=== PATIENT | male | born 1950 | race Caucasian/White ===

== ENCOUNTER 2020-10-31 21:18 | Inpatient (IN) | payer MEDICARE, OTHER ==
[~2020-10-31] VITALS: Ht 175.3 cm; Wt 110.2 kg
[2020-10-31 22:01] LABS: HEMOGLOBIN 15.9 gm/dl (14.0-17.5); RED BLOOD COUNT 5.61 M/UL (4.20-5.50); WHITE BLOOD COUNT 12.1 K/UL (4.5-11.0)
[2020-10-31 22:15] LABS: BUN/CREATININE RATIO 19 (0-10)
[2020-11-01 05:08] LABS: BUN/CREATININE RATIO 15 (0-10)
[2020-11-01] MEDS ORDERED: TRELEGY ELLIPT1 EACH INH (09:37)
[2020-11-01] MEDS ORDERED: FUROSEMIDE20 MG PO (09:38)
[2020-11-01] MEDS ORDERED: AMLODIPINE BESYL5 MG PO (09:40)
[2020-11-01] MEDS ORDERED: METOPROLOL SUCC50 MG PO (09:41)
[2020-11-02 02:51] LABS: RED BLOOD COUNT 5.27 M/UL (4.20-5.50); WHITE BLOOD COUNT 10.9 K/UL (4.5-11.0)
[2020-11-02 02:54] LABS: HEMOGLOBIN 13.9 gm/dl (14.0-17.5)
[2020-11-02 03:10] LABS: BUN/CREATININE RATIO 16 (0-10)
[2020-11-03 02:47] LABS: BUN/CREATININE RATIO 18 (0-10)
[2020-11-03 13:22] LABS: BUN/CREATININE RATIO 22 (0-10)
[2020-11-04 08:56] LABS: HEMOGLOBIN 15.8 gm/dl (14.0-17.5); RED BLOOD COUNT 5.62 M/UL (4.20-5.50)
[2020-11-04 09:15] LABS: BUN/CREATININE RATIO 31 (0-10)
[2020-11-05 02:40] LABS: HEMOGLOBIN 16.5 gm/dl (14.0-17.5); RED BLOOD COUNT 5.86 M/UL (4.20-5.50); WHITE BLOOD COUNT 12.8 K/UL (4.5-11.0)
[2020-11-05 03:07] LABS: BUN/CREATININE RATIO 39 (0-10)
[2020-11-06 04:01] LABS: BUN/CREATININE RATIO 40 (0-10)
[2020-11-07 03:27] LABS: RED BLOOD COUNT 6.09 M/UL (4.20-5.50); WHITE BLOOD COUNT 10.3 K/UL (4.5-11.0)
[2020-11-07 03:40] LABS: BUN/CREATININE RATIO 40 (0-10)
[2020-11-08 04:48] LABS: BUN/CREATININE RATIO 44 (0-10)
[2020-11-08] MEDS ORDERED: IPRAT-ALBUT 0.5-3 ML NEB (13:07)
[2020-11-08] MEDS ORDERED: K-DUR TAB 20 M20 MEQ PO (13:07)
[2020-11-08] MEDS ORDERED: ACETAZOLAMIDE250 MG PO (13:07)
[2020-11-08] MEDS ORDERED: ISOSORBIDE MONO30 MG PO (13:07)
[2020-11-08] MEDS ORDERED: FUROSEMIDE40 MG PO (13:07)
[2020-11-08] MEDS ORDERED: NICOTINE PATCH1 EAC1 TD (13:07)
== END 2020-11-08 15:38 | disposition home health service (06) | DRG 291 ==
LOC: ER1 21:18 → CDU 22:32 → PROG CARE 22:32
PROVIDERS: Family Medicine; Internal Medicine; Internal Medicine Infectious Disease; Internal Medicine Pulmonary Disease; Nurse Practitioner Family; ADMIT Family Medicine
PROC: 5A09557 Assistance with Respiratory Ventilation, Greater than 96 Consecutive Hours, Continuous Positive Airway Pressure (ICD-10-PCS; principal; 2020-10-31)
DX: I11.0 Hypertensive heart disease with heart failure (principal); J96.21 Acute and chronic respiratory failure with hypoxia; E66.2 Morbid (severe) obesity with alveolar hypoventilation; J84.9 Interstitial pulmonary disease, unspecified; J44.1 Chronic obstructive pulmonary disease with (acute) exacerbation; I50.33 Acute on chronic diastolic (congestive) heart failure; E87.6 Hypokalemia; I27.20 Pulmonary hypertension, unspecified; Z20.822 Contact with and (suspected) exposure to COVID-19; F41.9 Anxiety disorder, unspecified; Z82.49 Family history of ischemic heart disease and other diseases of the circulatory system; Z68.30 Body mass index [BMI] 30.0-30.9, adult; Z99.81 Dependence on supplemental oxygen; F17.200 Nicotine dependence, unspecified, uncomplicated; I16.0 Hypertensive urgency; J84.112 Idiopathic pulmonary fibrosis
CPT/HCPCS: ECHO; 0240U; 36415; 36600; 71045; 71250; 80048; 80053; 81001; 82550; 82553; 82803; 83605; 83735; 83874; 83880; 84100; 84132; 84439; 84443; 84484; 85025; 85610; 86140; 87040; 93005; 93306; 94640; 94660; 94664; 94760; 96374; 97116-GP-CQ; 97162; 97165; 97530-GP-CQ; 97535; 99285; J1120; J1205; J1650; J1940; J2405; J2550; J2920

== ENCOUNTER 2020-11-24 20:19 | Observation (INO) | payer MEDICARE, OTHER ==
[~2020-11-24] VITALS: Ht 175.3 cm; Wt 93.9 kg
[~2020-11-24 20:19] MED LIST: ACETAZOLAMIDE250 MG PO; AMLODIPINE BESYL5 MG PO; FUROSEMIDE20 MG PO; FUROSEMIDE40 MG PO; IPRAT-ALBUT 0.5-3 ML NEB; ISOSORBIDE MONO30 MG PO; K-DUR TAB 20 M20 MEQ PO; METOPROLOL SUCC50 MG PO; NICOTINE PATCH1 EAC1 TD; TRELEGY ELLIPT1 EACH INH
[2020-11-24 21:00] LABS: HEMOGLOBIN 17.6 gm/dl (14.0-17.5); RED BLOOD COUNT 6.32 M/UL (4.20-5.50); WHITE BLOOD COUNT 10.9 K/UL (4.5-11.0)
[2020-11-24 21:31] LABS: BUN/CREATININE RATIO 14 (0-10)
[2020-11-25 07:28] LABS: BUN/CREATININE RATIO 12 (0-10)
[2020-11-25] MEDS ORDERED: NICODERM CQ1 EAC1 TOP (09:02)
[2020-11-25] MEDS ORDERED: KLONOPIN TAB 00.5 MG PO (09:40)
[2020-11-25] MEDS ORDERED: DIAMOX 250 MG250 MG PO (12:35)
[2020-11-25] MEDS ORDERED: VENTOLIN HFA 66.7 GM INH (12:36)
[2020-11-25] MEDS ORDERED: ASPIRIN81 MG PO (15:53)
[2020-11-25] MEDS ORDERED: DILTIAZEM 24HR120 M1 PO (15:53)
[2020-11-25 22:21] LABS: ACINETOBACTER BAUMANNII Not Detected (Negative); CANDIDA ALBICANS Not Detected (Negative); CANDIDA KRUSEI Not Detected (Negative); CANDIDA TROPICALIS Not Detected (Negative); ENTEROCOCCUS Not Detected (Negative); ESCHERICHIA COLI Not Detected (Negative); HAEMOPHILUS INFLUENZAE Not Detected (Negative); KLEBSIELLA OXYTOCA Not Detected (Negative); KLEBSIELLA PNEUMONIAE Not Detected (Negative); KPC-CARBAPENEM-RESISTANCE GENE Not Detected (Negative); PROTEUS Not Detected (Negative); PSEUDOMONAS AERUGINOSA Not Detected (Negative); SERRATIA MARCESANS Not Detected (Negative); STAPHYLOCOCCUS Not Detected (Negative); STAPHYLOCOCCUS AUREUS Not Detected (Negative); STREP AGALACTIAE (GROUP B) Not Detected (Negative); STREP PYOGENES (GROUP A) Not Detected (Negative); STREPTOCOCCUS Not Detected (Negative); mecA (METHICILLIN RESIST GENE Not Detected (Negative); vanA/B (VANCOMYCIN RESIST GENE Not Detected (Negative)
--- NOTE | 2020-11-26 00:17 | NUR ---
@[email or web address] Montoya ABOUT + BLOOD CULTURE. MD LOOKED IN CHART AND STATED THAT IT WAS MOST LIKELY CONTAMINATION
== END 2020-11-25 17:11 | disposition home or self-care (01) ==
LOC: ER1 20:19 → CDU 22:51 → MED SURG 4 11-25 14:31
PROVIDERS: Emergency Medicine; ADMIT Internal Medicine
DX: R00.0 Tachycardia, unspecified (principal); J44.9 Chronic obstructive pulmonary disease, unspecified; I11.0 Hypertensive heart disease with heart failure; I50.32 Chronic diastolic (congestive) heart failure; I25.10 Atherosclerotic heart disease of native coronary artery without angina pectoris; J96.10 Chronic respiratory failure, unspecified whether with hypoxia or hypercapnia; F17.210 Nicotine dependence, cigarettes, uncomplicated; J84.10 Pulmonary fibrosis, unspecified; F41.9 Anxiety disorder, unspecified; E66.2 Morbid (severe) obesity with alveolar hypoventilation; Z68.30 Body mass index [BMI] 30.0-30.9, adult; Z20.822 Contact with and (suspected) exposure to COVID-19; Z99.81 Dependence on supplemental oxygen; Z88.0 Allergy status to penicillin; Z79.899 Other long term (current) drug therapy
CPT/HCPCS: 71045; 80048; 80053; 81001; 82550; 82553; 83605; 83735; 84100; 84484; 85025; 86140; 87040; 87077; 87086; 87150; 87186; 93005; 94664; 94760; 96374; 96375; 96376; 99285; G0378; J1940; Q9967; U0002

== ENCOUNTER → 2021-01-03 | Outpatient (CLI) | payer MEDICARE, OTHER ==
[~2021-01-03] MED LIST changes: +ASPIRIN81 MG PO; +DIAMOX 250 MG250 MG PO; +DILTIAZEM 24HR120 M1 PO; +KLONOPIN TAB 00.5 MG PO; +NICODERM CQ1 EAC1 TOP; +VENTOLIN HFA 66.7 GM INH
== END ==
LOC: HEART 5 12-21 08:00
DX: R07.89 Other chest pain (principal); R00.2 Palpitations
CPT/HCPCS: 78452; A9502; J2785